=== PATIENT | male | born 1945 | race Caucasian/White ===

== ENCOUNTER 2018-04-03 18:38 | Inpatient (IN) ==
[2018-04-03] MEDS ORDERED: Sod Chloride 0.9% Inj 1,000 ML IV.SIG ONE (19:13)
[2018-04-03 19:45] LABS: Baso # (Auto) 0.1 th/mm3 (0.0-0.2); Baso % (Auto) 1.6 % (0.0-2.0); Eos % (Auto) 0.2 % (0.0-4.0); Hematocrit 46.2 % (39.0-51.0); Hemoglobin 15.6 gm/dL (13.0-17.0); Lymph # (Auto) 0.9 th/mm3 (1.0-4.8); Lymph % (Auto) 10.2 % (9.0-44.0); Mean Corpuscular HGB Conc 33.8 % (32.0-36.0); Mean Corpuscular Hemoglobin 30.4 pg (27.0-34.0); Mean Corpuscular Volume 90.1 fL (80.0-100.0); Mono # (Auto) 0.9 th/mm3 (0.0-0.9); Mono % (Auto) 9.6 % (0.0-8.0); Neut # (Auto) 7.3 th/mm3 (1.8-7.7); Neut % (Auto) 78.4 % (16.0-70.0); Platelet Count 269 th/mm3 (150-450); Red Blood Count 5.13 mil/mm3 (4.50-5.90); Red Cell Distribution Width 14.1 % (11.6-17.2); White Blood Count 9.2 th/mm3 (4.0-11.0)
[2018-04-03 19:49] LABS: Chloride 109 meq/L (98-107); Potassium 4.2 meq/L (3.5-5.1); Sodium 142 meq/L (136-145)
[2018-04-03 19:52] LABS: Calcium 8.6 mg/dL (8.5-10.1)
[2018-04-03 19:53] LABS: Albumin 3.3 g/dL (3.4-5.0); Anion Gap 10 meq/L (5-15); Blood Urea Nitrogen 38 mg/dL (7-18); Carbon Dioxide 23.2 meq/L (21.0-32.0); Glucose,Random 219 mg/dL (74-106)
[2018-04-03 19:56] LABS: Alanine Aminotransferase 20 U/L (12-78); Aspartate Aminotransferase 20 U/L (15-37); Glomerular Filtration Rate 24 mL/min (>89)
[2018-04-03 19:57] LABS: Total Protein 6.9 g/dL (6.4-8.2)
[2018-04-03 19:58] LABS: Lipase 2157 U/L (73-393)
[2018-04-03 19:59] LABS: Alkaline Phosphatase 56 U/L (45-117)
[2018-04-03 20:02] LABS: Creatine Kinase 91 U/L (39-308)
[2018-04-03 20:16] LABS: Platelet Estimate Normal (Normal); Platelet Morphology Normal (Normal); RBC Morphology Normal (Normal)
--- NOTE | 2018-04-03 21:28 | ED ---
HPI General Chief complaint: Respiratory Symptoms Stated complaint: Congested/Sweating/Diarrhea Time Seen by Provider: 04/03/18 19:13 History of Present Illness HPI narrative: 73 male history of hypertension diabetes here for evaluation of diarrhea. Diarrhea started 5 days ago, watery, foul-smelling, associated with abdominal pain in the epigastric region, abdominal pain rated 7/10, constant, nothing makes it better or worse. No alcohol or drugs. Patient was prescribed a Z-Brady for his cough about a week ago, 3 days later he started noticing diarrhea. He has no fever or chills or night sweats, he says he still have a mild cough but no shortness of breath or chest pain. Related Data Home Medications Medication Instructions Recorded Confirmed aspirin [Aspir-81] 81 mg PO DAILY 01/20/18 04/03/18 cholecalciferol (vitamin D3) 2,000 units/day PO DAILY 01/20/18 04/03/18 [Vitamin D3] donepezil 10 mg PO HS 01/20/18 04/03/18 fenofibrate 160 mg PO DAILY 01/20/18 04/03/18 glipizide 10 mg PO BID 01/20/18 04/03/18 isosorbide mononitrate 60 mg PO DAILY 01/20/18 04/03/18 levothyroxine 50 mcg PO DAILY 01/20/18 04/03/18 lisinopril 40 mg PO DAILY 01/20/18 04/03/18 memantine 10 mg PO BID 01/20/18 04/03/18 metoprolol tartrate 25 mg PO BID 01/20/18 04/03/18 mometasone [Nasonex] 2 spray INTRANASAL DAILY 01/20/18 04/03/18 [id number] oil [[place]-3 720 mg PO TID 01/20/18 04/03/18 Fish Oil] prasugrel [Effient] 10 mg PO DAILY 01/20/18 04/03/18 insulin glargine [Lantus Solostar 30 unit SUB-Q BID 04/03/18 04/03/18 U-100 Insulin] Allergies Allergy/AdvReac Type Severity Reaction Status Date / Time iodine Allergy Unknown Doesn't Verified 04/03/18 19:15 remember rxn potassium iodide Allergy Unknown Doesn't Verified 04/03/18 19:15 remember rxn povidone-iodine Allergy Unknown Doesn't Verified 04/03/18 19:15 remember rxn sodium iodide Allergy Unknown Doesn't Verified 04/03/18 19:15 remember rxn sodium iodide Allergy Unknown Doesn't Verified 04/03/18 19:15 remember rxn Review of Systems ROS: all other systems reviewed are negative [facility] Medical History Medical History Kidney calculus (Acute) 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) Acute allergic rhinitis (Acute) High cholesterol (Acute) Diabetes (Acute) Hypertension (Acute) Thyroid disease (Acute) Surgical History Surgical History History of appendectomy (Acute) History of heart artery stent (Acute) History of tonsillectomy (Acute) Hx of cholecystectomy (Acute) Family History Family History Other No pertinent family history Social History Social History Substance History: No History of Abuse Second Hand Smoke Exposure: No Smoking Status: Former smoker Tobacco Type: Cigarettes How Often Do You Have a Drink Containing Alcohol: Never Immunization History Tetanus Immunization: <5 Years Hx Influenza Vaccine This Season: No Exam Narrative Exam Narrative: GENERAL: Alert oriented 3 no acute distress SKIN: Focused skin assessment warm/dry. HEAD: Atraumatic. Normocephalic. EYES: Pupils equal and round. No scleral icterus. No injection or drainage. ENT: No nasal bleeding or discharge. Mucous membranes pink and moist. NECK: Trachea midline. No JVD. CARDIOVASCULAR: Regular rate and rhythm. No murmur appreciated. RESPIRATORY: No accessory muscle use. Clear to auscultation. Breath sounds equal bilaterally. GASTROINTESTINAL: Mild tenderness on palpation of the epigastric region, abdomen soft, nondistended. Hepatic and splenic margins not palpable. MUSCULOSKELETAL: No obvious deformities. No clubbing. No cyanosis. No edema. NEUROLOGICAL: Awake and alert. No obvious cranial nerve deficits. Motor grossly within normal limits. Normal speech. PSYCHIATRIC: Appropriate mood and affect; insight and judgment normal. Course Initial Documented Vital Signs Temperature 97.6 F 04/03/18 18:44 Pulse Rate 76 04/03/18 18:44 Respiratory Rate 16 04/03/18 18:44 Blood Pressure 166/78 H 04/03/18 18:44 Pulse Oximetry 97 04/03/18 18:44 Last Documented Vital Signs Temperature 96.7 F L 04/07/18 08:00 Pulse Rate 60 04/07/18 08:00 Respiratory Rate 18 04/07/18 08:00 Blood Pressure 129/62 04/07/18 08:00 Pulse Oximetry 98 04/07/18 08:00 Medical Decision Making MDM Narrative Medical decision making narrative: 73 male here for diarrhea and abdominal pain , elevated lipase Of 2157, lactic acid 2.3, no hypotension or tachycardia, given the diarrhea and the lactic acidosis there is concern for possible mesenteric ischemia, I am unable to do a CTA of the abdomen to rule that out, patient received IV fluids, may need colonoscopy or further GI evaluation. Pending stool studies, will admit for further evaluation.f 2157, lactic acid 2.3 , no hypotension or tachycardia, given the diarrhea and the lactic acidosis there is concern for possible mesenteric ischemia, I am unable to do a CTA of the abdomen to rule that out, patient received IV fluids, may need colonoscopy or further GI evaluation. Pending stool studies, will admit for further evaluation. Medical Screen Exam Complete: Yes Emergency Medical Condition: Yes Lab Data Result diagrams: 04/05/18 04:35 04/06/18 09:05 Lab Results 04/03/18 04/03/18 04/03/18 Range/Units 19:30 19:30 19:30 CBC w Diff Slide review pending WBC 9.2 (4.0-11.0) th/mm3 RBC 5.13 (4.50-5.90) mil/mm3 Hgb 15.6 (13.0-17.0) gm/dL Hct 46.2 (39.0-51.0) % MCV 90.1 (80.0-100.0) fL MCH 30.4 (27.0-34.0) pg MCHC 33.8 (32.0-36.0) % RDW 14.1 (11.6-17.2) % Plt Count 269 (150-450) th/mm3 MPV 9.0 (7.0-11.0) fL Neut % (Auto) 78.4 H (16.0-70.0) % Lymph % (Auto) 10.2 (9.0-44.0) % [place] % (Auto) 9.6 H (0.0-8.0) % Eos % (Auto) 0.2 (0.0-4.0) % Baso % (Auto) 1.6 (0.0-2.0) % Neut # (Auto) 7.3 (1.8-7.7) th/mm3 Lymph # (Auto) 0.9 L (1.0-4.8) th/mm3 [place] # (Auto) 0.9 (0.0-0.9) th/mm3 Eos # (Auto) 0.0 (0.0-0.4) th/mm3 Baso # (Auto) 0.1 (0.0-0.2) th/mm3 WBC Differential . Diff Scan Auto diff confirmed Differential Comment . Platelet Estimate Normal (Normal) Platelet Morphology Normal (Normal) RBC Morphology Normal (Normal) Sodium 142 (136-145) meq/L Potassium 4.2 (3.5-5.1) meq/L Chloride 109 H (98-107) meq/L Carbon Dioxide 23.2 (21.0-32.0) meq/L Anion Gap 10 (5-15) meq/L BUN 38 H (7-18) mg/dL Creatinine 2.60 H (0.60-1.30) mg/dL Estimated GFR 24 L (>89) mL/min POC Glucose (68-110) mg/dl Random Glucose 219 H (74-106) mg/dL Lactic Acid 2.3 H (0.4-2.0) mmol/L Calcium 8.6 (8.5-10.1) mg/dL Magnesium (1.5-2.5) mg/dL Total Bilirubin 0.4 (0.2-1.0) mg/dL AST 20 (15-37) U/L ALT 20 (12-78) U/L Alkaline Phosphatase 56 (45-117) U/L Total Creatine Kinase 91 (39-308) U/L Troponin I Less than 0.02 L (0.02-0.05) ng/mL Total Protein 6.9 (6.4-8.2) g/dL Albumin 3.3 L (3.4-5.0) g/dL Triglycerides (42-150) mg/dL Cholesterol (120-200) mg/dL LDL Cholesterol, Calc (0-99) mg/dL HDL Cholesterol (40.0-60.0) mg/dL Cholesterol/HDL Ratio Ratio Lipase 2157 H (73-393) U/L Urine Color (Yellw/Straw) Urine Clarity (Clear) Urine pH (5.0-8.5) Ur Specific [place] (1.002-1.035) Urine Protein (Neg-Trace) mg/dL Urine Glucose (UA) (Negative) mg/dL Urine Ketones (Negative) mg/dL Urine Occult Blood (Negative) Urine Nitrate (Negative) Urine Bilirubin (Negative) Urine Urobilinogen (Less than 2) mg/dL Ur Leukocyte Esterase (Negative) Urine RBC (0-3) /hpf Urine WBC (0-5) /hpf Ur Squamous Epith Cells (0-5) /hpf Calcium Oxalate Crystal (None) /hpf Micro UA Comment Ur Microscopic Review Urine Culture Comments Stl C.difficile Tox PCR (Negative) St C. diff Tox Epid 027 (Negative) IgG Total (694-1618) mg/dL IgG1 (382-929) mg/dL IgG2 (241-700) mg/dL IgG3 (22-178) mg/dL IgG4 (4-86) mg/dL 04/03/18 04/03/18 04/04/18 Range/Units 21:20 22:15 00:42 CBC w Diff WBC (4.0-11.0) th/mm3 RBC (4.50-5.90) mil/mm3 Hgb (13.0-17.0) gm/dL Hct (39.0-51.0) % MCV (80.0-100.0) fL MCH (27.0-34.0) pg MCHC (32.0-36.0) % RDW (11.6-17.2) % Plt Count (150-450) th/mm3 MPV (7.0-11.0) fL Neut % (Auto) (16.0-70.0) % Lymph % (Auto) (9.0-44.0) % [place] % (Auto) (0.0-8.0) % Eos % (Auto) (0.0-4.0) % Baso % (Auto) (0.0-2.0) % Neut # (Auto) (1.8-7.7) th/mm3 Lymph # (Auto) (1.0-4.8) th/mm3 [place] # (Auto) (0.0-0.9) th/mm3 Eos # (Auto) (0.0-0.4) th/mm3 Baso # (Auto) (0.0-0.2) th/mm3 WBC Differential Diff Scan Differential Comment Platelet Estimate (Normal) Platelet Morphology (Normal) RBC Morphology (Normal) Sodium (136-145) meq/L Potassium (3.5-5.1) meq/L Chloride (98-107) meq/L Carbon Dioxide (21.0-32.0) meq/L Anion Gap (5-15) meq/L BUN (7-18) mg/dL Creatinine (0.60-1.30) mg/dL Estimated GFR (>89) mL/min POC Glucose 60 L (68-110) mg/dl Random Glucose (74-106) mg/dL Lactic Acid 1.1 (0.4-2.0) mmol/L Calcium (8.5-10.1) mg/dL Magnesium (1.5-2.5) mg/dL Total Bilirubin (0.2-1.0) mg/dL AST (15-37) U/L ALT (12-78) U/L Alkaline Phosphatase (45-117) U/L Total Creatine Kinase (39-308) U/L Troponin I (0.02-0.05) ng/mL Total Protein (6.4-8.2) g/dL Albumin (3.4-5.0) g/dL Triglycerides (42-150) mg/dL Cholesterol (120-200) mg/dL LDL Cholesterol, Calc (0-99) mg/dL HDL Cholesterol (40.0-60.0) mg/dL Cholesterol/HDL Ratio Ratio Lipase (73-393) U/L Urine Color (Yellw/Straw) Urine Clarity (Clear) Urine pH (5.0-8.5) Ur Specific [place] (1.002-1.035) Urine Protein (Neg-Trace) mg/dL Urine Glucose (UA) (Negative) mg/dL Urine Ketones (Negative) mg/dL Urine Occult Blood (Negative) Urine Nitrate (Negative) Urine Bilirubin (Negative) Urine Urobilinogen (Less than 2) mg/dL Ur Leukocyte Esterase (Negative) Urine RBC (0-3) /hpf Urine WBC (0-5) /hpf Ur Squamous Epith Cells (0-5) /hpf Calcium Oxalate Crystal (None) /hpf Micro UA Comment Ur Microscopic Review Urine Culture Comments Stl C.difficile Tox PCR Negative (Negative) St C. diff Tox Epid 027 Negative (Negative) IgG Total (694-1618) mg/dL IgG1 (382-929) mg/dL IgG2 (241-700) mg/dL IgG3 (22-178) mg/dL IgG4 (4-86) mg/dL 04/04/18 04/04/18 04/04/18 Range/Units 01:30 03:40 04:16 CBC w Diff WBC (4.0-11.0) th/mm3 RBC (4.50-5.90) mil/mm3 Hgb (13.0-17.0) gm/dL Hct (39.0-51.0) % MCV (80.0-100.0) fL MCH (27.0-34.0) pg MCHC (32.0-36.0) % RDW (11.6-17.2) % Plt Count (150-450) th/mm3 MPV (7.0-11.0) fL Neut % (Auto) (16.0-70.0) % Lymph % (Auto) (9.0-44.0) % [place] % (Auto) (0.0-8.0) % Eos % (Auto) (0.0-4.0) % Baso % (Auto) (0.0-2.0) % Neut # (Auto) (1.8-7.7) th/mm3 Lymph # (Auto) (1.0-4.8) th/mm3 [place] # (Auto) (0.0-0.9) th/mm3 Eos # (Auto) (0.0-0.4) th/mm3 Baso # (Auto) (0.0-0.2) th/mm3 WBC Differential Diff Scan Differential Comment Platelet Estimate (Normal) Platelet Morphology (Normal) RBC Morphology (Normal) Sodium (136-145) meq/L Potassium (3.5-5.1) meq/L Chloride (98-107) meq/L Carbon Dioxide (21.0-32.0) meq/L Anion Gap (5-15) meq/L BUN (7-18) mg/dL Creatinine (0.60-1.30) mg/dL Estimated GFR (>89) mL/min POC Glucose 76 81 (68-110) mg/dl Random Glucose 81 D (74-106) mg/dL Lactic Acid (0.4-2.0) mmol/L Calcium (8.5-10.1) mg/dL Magnesium (1.5-2.5) mg/dL Total Bilirubin (0.2-1.0) mg/dL AST (15-37) U/L ALT (12-78) U/L Alkaline Phosphatase (45-117) U/L Total Creatine Kinase (39-308) U/L Troponin I (0.02-0.05) ng/mL Total Protein (6.4-8.2) g/dL Albumin (3.4-5.0) g/dL Triglycerides (42-150) mg/dL Cholesterol (120-200) mg/dL LDL Cholesterol, Calc (0-99) mg/dL HDL Cholesterol (40.0-60.0) mg/dL Cholesterol/HDL Ratio Ratio Lipase (73-393) U/L Urine Color (Yellw/Straw) Urine Clarity (Clear) Urine pH (5.0-8.5) Ur Specific [place] (1.002-1.035) Urine Protein (Neg-Trace) mg/dL Urine Glucose (UA) (Negative) mg/dL Urine Ketones (Negative) mg/dL Urine Occult Blood (Negative) Urine Nitrate (Negative) Urine Bilirubin (Negative) Urine Urobilinogen (Less than 2) mg/dL Ur Leukocyte Esterase (Negative) Urine RBC (0-3) /hpf Urine WBC (0-5) /hpf Ur Squamous Epith Cells (0-5) /hpf Calcium Oxalate Crystal (None) /hpf Micro UA Comment Ur Microscopic Review Urine Culture Comments Stl C.difficile Tox PCR (Negative) St C. diff Tox Epid 027 (Negative) IgG Total (694-1618) mg/dL IgG1 (382-929) mg/dL IgG2 (241-700) mg/dL IgG3 (22-178) mg/dL IgG4 (4-86) mg/dL 04/04/18 04/04/18 04/04/18 Range/Units 04:35 05:00 06:20 CBC w Diff Auto diff final WBC 8.9 (4.0-11.0) th/mm3 RBC 4.81 (4.50-5.90) mil/mm3 Hgb 15.1 (13.0-17.0) gm/dL Hct 44.2 (39.0-51.0) % MCV 92.0 (80.0-100.0) fL MCH 31.4 (27.0-34.0) pg MCHC 34.1 (32.0-36.0) % RDW 13.9 (11.6-17.2) % Plt Count 219 (150-450) th/mm3 MPV 8.3 (7.0-11.0) fL Neut % (Auto) 74.8 H (16.0-70.0) % Lymph % (Auto) 17.6 (9.0-44.0) % [place] % (Auto) 5.7 (0.0-8.0) % Eos % (Auto) 0.8 (0.0-4.0) % Baso % (Auto) 1.1 (0.0-2.0) % Neut # (Auto) 6.6 (1.8-7.7) th/mm3 Lymph # (Auto) 1.6 (1.0-4.8) th/mm3 [place] # (Auto) 0.5 (0.0-0.9) th/mm3 Eos # (Auto) 0.1 (0.0-0.4) th/mm3 Baso # (Auto) 0.1 (0.0-0.2) th/mm3 WBC Differential . Diff Scan Differential Comment . Platelet Estimate (Normal) Platelet Morphology (Normal) RBC Morphology (Normal) Sodium (136-145) meq/L Potassium (3.5-5.1) meq/L Chloride (98-107) meq/L Carbon Dioxide (21.0-32.0) meq/L Anion Gap (5-15) meq/L BUN (7-18) mg/dL Creatinine (0.60-1.30) mg/dL Estimated GFR (>89) mL/min POC Glucose 88 86 (68-110) mg/dl Random Glucose (74-106) mg/dL Lactic Acid (0.4-2.0) mmol/L Calcium (8.5-10.1) mg/dL Magnesium (1.5-2.5) mg/dL Total Bilirubin (0.2-1.0) mg/dL AST (15-37) U/L ALT (12-78) U/L Alkaline Phosphatase (45-117) U/L Total Creatine Kinase (39-308) U/L Troponin I (0.02-0.05) ng/mL Total Protein (6.4-8.2) g/dL Albumin (3.4-5.0) g/dL Triglycerides (42-150) mg/dL Cholesterol (120-200) mg/dL LDL Cholesterol, Calc (0-99) mg/dL HDL Cholesterol (40.0-60.0) mg/dL Cholesterol/HDL Ratio Ratio Lipase (73-393) U/L Urine Color (Yellw/Straw) Urine Clarity (Clear) Urine pH (5.0-8.5) Ur Specific [place] (1.002-1.035) Urine Protein (Neg-Trace) mg/dL Urine Glucose (UA) (Negative) mg/dL Urine Ketones (Negative) mg/dL Urine Occult Blood (Negative) Urine Nitrate (Negative) Urine Bilirubin (Negative) Urine Urobilinogen (Less than 2) mg/dL Ur Leukocyte Esterase (Negative) Urine RBC (0-3) /hpf Urine WBC (0-5) /hpf Ur Squamous Epith Cells (0-5) /hpf Calcium Oxalate Crystal (None) /hpf Micro UA Comment Ur Microscopic Review Urine Culture Comments Stl C.difficile Tox PCR (Negative) St C. diff Tox Epid 027 (Negative) IgG Total (694-1618) mg/dL IgG1 (382-929) mg/dL IgG2 (241-700) mg/dL IgG3 (22-178) mg/dL IgG4 (4-86) mg/dL 04/04/18 04/04/18 04/04/18 Range/Units 06:20 06:20 06:37 CBC w Diff WBC (4.0-11.0) th/mm3 RBC (4.50-5.90) mil/mm3 Hgb (13.0-17.0) gm/dL Hct (39.0-51.0) % MCV (80.0-100.0) fL MCH (27.0-34.0) pg MCHC (32.0-36.0) % RDW (11.6-17.2) % Plt Count (150-450) th/mm3 MPV (7.0-11.0) fL Neut % (Auto) (16.0-70.0) % Lymph % (Auto) (9.0-44.0) % [place] % (Auto) (0.0-8.0) % Eos % (Auto) (0.0-4.0) % Baso % (Auto) (0.0-2.0) % Neut # (Auto) (1.8-7.7) th/mm3 Lymph # (Auto) (1.0-4.8) th/mm3 [place] # (Auto) (0.0-0.9) th/mm3 Eos # (Auto) (0.0-0.4) th/mm3 Baso # (Auto) (0.0-0.2) th/mm3 WBC Differential Diff Scan Differential Comment Platelet Estimate (Normal) Platelet Morphology (Normal) RBC Morphology (Normal) Sodium 143 (136-145) meq/L Potassium 3.8 (3.5-5.1) meq/L Chloride 114 H (98-107) meq/L Carbon Dioxide 19.7 L (21.0-32.0) meq/L Anion Gap 9 (5-15) meq/L BUN 33 H (7-18) mg/dL Creatinine 2.20 H (0.60-1.30) mg/dL Estimated GFR 29 L (>89) mL/min POC Glucose 81 (68-110) mg/dl Random Glucose 75 (74-106) mg/dL Lactic Acid (0.4-2.0) mmol/L Calcium 8.4 L (8.5-10.1) mg/dL Magnesium 1.9 (1.5-2.5) mg/dL Total Bilirubin 0.7 (0.2-1.0) mg/dL AST 20 (15-37) U/L ALT 20 (12-78) U/L Alkaline Phosphatase 54 (45-117) U/L Total Creatine Kinase (39-308) U/L Troponin I (0.02-0.05) ng/mL Total Protein 7.1 (6.4-8.2) g/dL Albumin 3.5 (3.4-5.0) g/dL Triglycerides (42-150) mg/dL Cholesterol (120-200) mg/dL LDL Cholesterol, Calc (0-99) mg/dL HDL Cholesterol (40.0-60.0) mg/dL Cholesterol/HDL Ratio Ratio Lipase 2983 H (73-393) U/L Urine Color (Yellw/Straw) Urine Clarity (Clear) Urine pH (5.0-8.5) Ur Specific [place] (1.002-1.035) Urine Protein (Neg-Trace) mg/dL Urine Glucose (UA) (Negative) mg/dL Urine Ketones (Negative) mg/dL Urine Occult Blood (Negative) Urine Nitrate (Negative) Urine Bilirubin (Negative) Urine Urobilinogen (Less than 2) mg/dL Ur Leukocyte Esterase (Negative) Urine RBC (0-3) /hpf Urine WBC (0-5) /hpf Ur Squamous Epith Cells (0-5) /hpf Calcium Oxalate Crystal (None) /hpf Micro UA Comment Ur Microscopic Review Urine Culture Comments Stl C.difficile Tox PCR (Negative) St C. diff Tox Epid 027 (Negative) IgG Total (694-1618) mg/dL IgG1 (382-929) mg/dL IgG2 (241-700) mg/dL IgG3 (22-178) mg/dL IgG4 (4-86) mg/dL 04/04/18 04/04/18 04/04/18 Range/Units 08:07 11:26 11:45 CBC w Diff WBC (4.0-11.0) th/mm3 RBC (4.50-5.90) mil/mm3 Hgb (13.0-17.0) gm/dL Hct (39.0-51.0) % MCV (80.0-100.0) fL MCH (27.0-34.0) pg MCHC (32.0-36.0) % RDW (11.6-17.2) % Plt Count (150-450) th/mm3 MPV (7.0-11.0) fL Neut % (Auto) (16.0-70.0) % Lymph % (Auto) (9.0-44.0) % [place] % (Auto) (0.0-8.0) % Eos % (Auto) (0.0-4.0) % Baso % (Auto) (0.0-2.0) % Neut # (Auto) (1.8-7.7) th/mm3 Lymph # (Auto) (1.0-4.8) th/mm3 [place] # (Auto) (0.0-0.9) th/mm3 Eos # (Auto) (0.0-0.4) th/mm3 Baso # (Auto) (0.0-0.2) th/mm3 WBC Differential Diff Scan Differential Comment Platelet Estimate (Normal) Platelet Morphology (Normal) RBC Morphology (Normal) Sodium (136-145) meq/L Potassium (3.5-5.1) meq/L Chloride (98-107) meq/L Carbon Dioxide (21.0-32.0) meq/L Anion Gap (5-15) meq/L BUN (7-18) mg/dL Creatinine (0.60-1.30) mg/dL Estimated GFR (>89) mL/min POC Glucose 86 94 (68-110) mg/dl Random Glucose (74-106) mg/dL Lactic Acid (0.4-2.0) mmol/L Calcium (8.5-10.1) mg/dL Magnesium (1.5-2.5) mg/dL Total Bilirubin (0.2-1.0) mg/dL AST (15-37) U/L ALT (12-78) U/L Alkaline Phosphatase (45-117) U/L Total Creatine Kinase (39-308) U/L Troponin I (0.02-0.05) ng/mL Total Protein (6.4-8.2) g/dL Albumin (3.4-5.0) g/dL Triglycerides (42-150) mg/dL Cholesterol (120-200) mg/dL LDL Cholesterol, Calc (0-99) mg/dL HDL Cholesterol (40.0-60.0) mg/dL Cholesterol/HDL Ratio Ratio Lipase (73-393) U/L Urine Color Yellow (Yellw/Straw) Urine Clarity Clear (Clear) Urine pH 5.5 (5.0-8.5) Ur Specific [place] Greater/equal 1.030 (1.002-1.035) Urine Protein 100 H (Neg-Trace) mg/dL Urine Glucose (UA) Negative (Negative) mg/dL Urine Ketones Negative (Negative) mg/dL Urine Occult Blood Small H (Negative) Urine Nitrate Negative (Negative) Urine Bilirubin Negative (Negative) Urine Urobilinogen 0.2 (Less than 2) mg/dL Ur Leukocyte Esterase Negative (Negative) Urine RBC 4-15 H (0-3) /hpf Urine WBC 0-5 (0-5) /hpf Ur Squamous Epith Cells 0-5 (0-5) /hpf Calcium Oxalate Crystal Occasional H (None) /hpf Micro UA Comment Culture not ind Ur Microscopic Review Microscopic reviewed Urine Culture Comments Culture not ind Stl C.difficile Tox PCR (Negative) St C. diff Tox Epid 027 (Negative) IgG Total (694-1618) mg/dL IgG1 (382-929) mg/dL IgG2 (241-700) mg/dL IgG3 (22-178) mg/dL IgG4 (4-86) mg/dL 04/04/18 04/04/18 04/05/18 Range/Units 17:06 19:59 04:35 CBC w Diff Auto diff final WBC 6.8 (4.0-11.0) th/mm3 RBC 4.67 (4.50-5.90) mil/mm3 Hgb 14.7 (13.0-17.0) gm/dL Hct 43.4 (39.0-51.0) % MCV 92.9 (80.0-100.0) fL MCH 31.5 (27.0-34.0) pg MCHC 34.0 (32.0-36.0) % RDW 13.9 (11.6-17.2) % Plt Count 209 (150-450) th/mm3 MPV 8.3 (7.0-11.0) fL Neut % (Auto) 66.2 (16.0-70.0) % Lymph % (Auto) 20.9 (9.0-44.0) % [place] % (Auto) 10.0 H (0.0-8.0) % Eos % (Auto) 1.5 (0.0-4.0) % Baso % (Auto) 1.4 (0.0-2.0) % Neut # (Auto) 4.5 (1.8-7.7) th/mm3 Lymph # (Auto) 1.4 (1.0-4.8) th/mm3 [place] # (Auto) 0.7 (0.0-0.9) th/mm3 Eos # (Auto) 0.1 (0.0-0.4) th/mm3 Baso # (Auto) 0.1 (0.0-0.2) th/mm3 WBC Differential . Diff Scan Differential Comment . Platelet Estimate (Normal) Platelet Morphology (Normal) RBC Morphology (Normal) Sodium (136-145) meq/L Potassium (3.5-5.1) meq/L Chloride (98-107) meq/L Carbon Dioxide (21.0-32.0) meq/L Anion Gap (5-15) meq/L BUN (7-18) mg/dL Creatinine (0.60-1.30) mg/dL Estimated GFR (>89) mL/min POC Glucose 134 H 254 H (68-110) mg/dl Random Glucose (74-106) mg/dL Lactic Acid (0.4-2.0) mmol/L Calcium (8.5-10.1) mg/dL Magnesium (1.5-2.5) mg/dL Total Bilirubin (0.2-1.0) mg/dL AST (15-37) U/L ALT (12-78) U/L Alkaline Phosphatase (45-117) U/L Total Creatine Kinase (39-308) U/L Troponin I (0.02-0.05) ng/mL Total Protein (6.4-8.2) g/dL Albumin (3.4-5.0) g/dL Triglycerides (42-150) mg/dL Cholesterol (120-200) mg/dL LDL Cholesterol, Calc (0-99) mg/dL HDL Cholesterol (40.0-60.0) mg/dL Cholesterol/HDL Ratio Ratio Lipase (73-393) U/L Urine Color (Yellw/Straw) Urine Clarity (Clear) Urine pH (5.0-8.5) Ur Specific [place] (1.002-1.035) Urine Protein (Neg-Trace) mg/dL Urine Glucose (UA) (Negative) mg/dL Urine Ketones (Negative) mg/dL Urine Occult Blood (Negative) Urine Nitrate (Negative) Urine Bilirubin (Negative) Urine Urobilinogen (Less than 2) mg/dL Ur Leukocyte Esterase (Negative) Urine RBC (0-3) /hpf Urine WBC (0-5) /hpf Ur Squamous Epith Cells (0-5) /hpf Calcium Oxalate Crystal (None) /hpf Micro UA Comment Ur Microscopic Review Urine Culture Comments Stl C.difficile Tox PCR (Negative) St C. diff Tox Epid 027 (Negative) IgG Total (694-1618) mg/dL IgG1 (382-929) mg/dL IgG2 (241-700) mg/dL IgG3 (22-178) mg/dL IgG4 (4-86) mg/dL 04/05/18 04/05/18 04/05/18 Range/Units 04:35 07:27 11:43 CBC w Diff WBC (4.0-11.0) th/mm3 RBC (4.50-5.90) mil/mm3 Hgb (13.0-17.0) gm/dL Hct (39.0-51.0) % MCV (80.0-100.0) fL MCH (27.0-34.0) pg MCHC (32.0-36.0) % RDW (11.6-17.2) % Plt Count (150-450) th/mm3 MPV (7.0-11.0) fL Neut % (Auto) (16.0-70.0) % Lymph % (Auto) (9.0-44.0) % [place] % (Auto) (0.0-8.0) % Eos % (Auto) (0.0-4.0) % Baso % (Auto) (0.0-2.0) % Neut # (Auto) (1.8-7.7) th/mm3 Lymph # (Auto) (1.0-4.8) th/mm3 [place] # (Auto) (0.0-0.9) th/mm3 Eos # (Auto) (0.0-0.4) th/mm3 Baso # (Auto) (0.0-0.2) th/mm3 WBC Differential Diff Scan Differential Comment Platelet Estimate (Normal) Platelet Morphology (Normal) RBC Morphology (Normal) Sodium 143 (136-145) meq/L Potassium 4.0 (3.5-5.1) meq/L Chloride 114 H (98-107) meq/L Carbon Dioxide 21.0 (21.0-32.0) meq/L Anion Gap 8 (5-15) meq/L BUN 23 H (7-18) mg/dL Creatinine 1.90 H (0.60-1.30) mg/dL Estimated GFR 35 L (>89) mL/min POC Glucose 151 H 177 H (68-110) mg/dl Random Glucose 131 H (74-106) mg/dL Lactic Acid (0.4-2.0) mmol/L Calcium 8.2 L (8.5-10.1) mg/dL Magnesium 1.9 (1.5-2.5) mg/dL Total Bilirubin (0.2-1.0) mg/dL AST (15-37) U/L ALT (12-78) U/L Alkaline Phosphatase (45-117) U/L Total Creatine Kinase (39-308) U/L Troponin I (0.02-0.05) ng/mL Total Protein (6.4-8.2) g/dL Albumin (3.4-5.0) g/dL Triglycerides (42-150) mg/dL Cholesterol (120-200) mg/dL LDL Cholesterol, Calc (0-99) mg/dL HDL Cholesterol (40.0-60.0) mg/dL Cholesterol/HDL Ratio Ratio Lipase 2266 H (73-393) U/L Urine Color (Yellw/Straw) Urine Clarity (Clear) Urine pH (5.0-8.5) Ur Specific [place] (1.002-1.035) Urine Protein (Neg-Trace) mg/dL Urine Glucose (UA) (Negative) mg/dL Urine Ketones (Negative) mg/dL Urine Occult Blood (Negative) Urine Nitrate (Negative) Urine Bilirubin (Negative) Urine Urobilinogen (Less than 2) mg/dL Ur Leukocyte Esterase (Negative) Urine RBC (0-3) /hpf Urine WBC (0-5) /hpf Ur Squamous Epith Cells (0-5) /hpf Calcium Oxalate Crystal (None) /hpf Micro UA Comment Ur Microscopic Review Urine Culture Comments Stl C.difficile Tox PCR (Negative) St C. diff Tox Epid 027 (Negative) IgG Total (694-1618) mg/dL IgG1 (382-929) mg/dL IgG2 (241-700) mg/dL IgG3 (22-178) mg/dL IgG4 (4-86) mg/dL 04/05/18 04/05/18 04/06/18 Range/Units 16:44 20:43 07:30 CBC w Diff WBC (4.0-11.0) th/mm3 RBC (4.50-5.90) mil/mm3 Hgb (13.0-17.0) gm/dL Hct (39.0-51.0) % MCV (80.0-100.0) fL MCH (27.0-34.0) pg MCHC (32.0-36.0) % RDW (11.6-17.2) % Plt Count (150-450) th/mm3 MPV (7.0-11.0) fL Neut % (Auto) (16.0-70.0) % Lymph % (Auto) (9.0-44.0) % [place] % (Auto) (0.0-8.0) % Eos % (Auto) (0.0-4.0) % Baso % (Auto) (0.0-2.0) % Neut # (Auto) (1.8-7.7) th/mm3 Lymph # (Auto) (1.0-4.8) th/mm3 [place] # (Auto) (0.0-0.9) th/mm3 Eos # (Auto) (0.0-0.4) th/mm3 Baso # (Auto) (0.0-0.2) th/mm3 WBC Differential Diff Scan Differential Comment Platelet Estimate (Normal) Platelet Morphology (Normal) RBC Morphology (Normal) Sodium (136-145) meq/L Potassium (3.5-5.1) meq/L Chloride (98-107) meq/L Carbon Dioxide (21.0-32.0) meq/L Anion Gap (5-15) meq/L BUN (7-18) mg/dL Creatinine (0.60-1.30) mg/dL Estimated GFR (>89) mL/min POC Glucose 168 H 253 H 137 H (68-110) mg/dl Random Glucose (74-106) mg/dL Lactic Acid (0.4-2.0) mmol/L Calcium (8.5-10.1) mg/dL Magnesium (1.5-2.5) mg/dL Total Bilirubin (0.2-1.0) mg/dL AST (15-37) U/L ALT (12-78) U/L Alkaline Phosphatase (45-117) U/L Total Creatine Kinase (39-308) U/L Troponin I (0.02-0.05) ng/mL Total Protein (6.4-8.2) g/dL Albumin (3.4-5.0) g/dL Triglycerides (42-150) mg/dL Cholesterol (120-200) mg/dL LDL Cholesterol, Calc (0-99) mg/dL HDL Cholesterol (40.0-60.0) mg/dL Cholesterol/HDL Ratio Ratio Lipase (73-393) U/L Urine Color (Yellw/Straw) Urine Clarity (Clear) Urine pH (5.0-8.5) Ur Specific [place] (1.002-1.035) Urine Protein (Neg-Trace) mg/dL Urine Glucose (UA) (Negative) mg/dL Urine Ketones (Negative) mg/dL Urine Occult Blood (Negative) Urine Nitrate (Negative) Urine Bilirubin (Negative) Urine Urobilinogen (Less than 2) mg/dL Ur Leukocyte Esterase (Negative) Urine RBC (0-3) /hpf Urine WBC (0-5) /hpf Ur Squamous Epith Cells (0-5) /hpf Calcium Oxalate Crystal (None) /hpf Micro UA Comment Ur Microscopic Review Urine Culture Comments Stl C.difficile Tox PCR (Negative) St C. diff Tox Epid 027 (Negative) IgG Total (694-1618) mg/dL IgG1 (382-929) mg/dL IgG2 (241-700) mg/dL IgG3 (22-178) mg/dL IgG4 (4-86) mg/dL 04/06/18 04/06/18 04/06/18 Range/Units 09:05 12:04 16:28 CBC w Diff WBC (4.0-11.0) th/mm3 RBC (4.50-5.90) mil/mm3 Hgb (13.0-17.0) gm/dL Hct (39.0-51.0) % MCV (80.0-100.0) fL MCH (27.0-34.0) pg MCHC (32.0-36.0) % RDW (11.6-17.2) % Plt Count (150-450) th/mm3 MPV (7.0-11.0) fL Neut % (Auto) (16.0-70.0) % Lymph % (Auto) (9.0-44.0) % [place] % (Auto) (0.0-8.0) % Eos % (Auto) (0.0-4.0) % Baso % (Auto) (0.0-2.0) % Neut # (Auto) (1.8-7.7) th/mm3 Lymph # (Auto) (1.0-4.8) th/mm3 [place] # (Auto) (0.0-0.9) th/mm3 Eos # (Auto) (0.0-0.4) th/mm3 Baso # (Auto) (0.0-0.2) th/mm3 WBC Differential Diff Scan Differential Comment Platelet Estimate (Normal) Platelet Morphology (Normal) RBC Morphology (Normal) Sodium 143 (136-145) meq/L Potassium 3.8 (3.5-5.1) meq/L Chloride 114 H (98-107) meq/L Carbon Dioxide 19.7 L (21.0-32.0) meq/L Anion Gap 9 (5-15) meq/L BUN 17 (7-18) mg/dL Creatinine 1.90 H (0.60-1.30) mg/dL Estimated GFR 35 L (>89) mL/min POC Glucose 192 H 149 H (68-110) mg/dl Random Glucose 150 H (74-106) mg/dL Lactic Acid (0.4-2.0) mmol/L Calcium 7.9 L (8.5-10.1) mg/dL Magnesium (1.5-2.5) mg/dL Total Bilirubin (0.2-1.0) mg/dL AST (15-37) U/L ALT (12-78) U/L Alkaline Phosphatase (45-117) U/L Total Creatine Kinase (39-308) U/L Troponin I (0.02-0.05) ng/mL Total Protein (6.4-8.2) g/dL Albumin (3.4-5.0) g/dL Triglycerides (42-150) mg/dL Cholesterol (120-200) mg/dL LDL Cholesterol, Calc (0-99) mg/dL HDL Cholesterol (40.0-60.0) mg/dL Cholesterol/HDL Ratio Ratio Lipase 801 H (73-393) U/L Urine Color (Yellw/Straw) Urine Clarity (Clear) Urine pH (5.0-8.5) Ur Specific [place] (1.002-1.035) Urine Protein (Neg-Trace) mg/dL Urine Glucose (UA) (Negative) mg/dL Urine Ketones (Negative) mg/dL Urine Occult Blood (Negative) Urine Nitrate (Negative) Urine Bilirubin (Negative) Urine Urobilinogen (Less than 2) mg/dL Ur Leukocyte Esterase (Negative) Urine RBC (0-3) /hpf Urine WBC (0-5) /hpf Ur Squamous Epith Cells (0-5) /hpf Calcium Oxalate Crystal (None) /hpf Micro UA Comment Ur Microscopic Review Urine Culture Comments Stl C.difficile Tox PCR (Negative) St C. diff Tox Epid 027 (Negative) IgG Total (694-1618) mg/dL IgG1 (382-929) mg/dL IgG2 (241-700) mg/dL IgG3 (22-178) mg/dL IgG4 (4-86) mg/dL 04/06/18 04/06/18 04/06/18 Range/Units 18:13 18:13 20:38 CBC w Diff WBC (4.0-11.0) th/mm3 RBC (4.50-5.90) mil/mm3 Hgb (13.0-17.0) gm/dL Hct (39.0-51.0) % MCV (80.0-100.0) fL MCH (27.0-34.0) pg MCHC (32.0-36.0) % RDW (11.6-17.2) % Plt Count (150-450) th/mm3 MPV (7.0-11.0) fL Neut % (Auto) (16.0-70.0) % Lymph % (Auto) (9.0-44.0) % [place] % (Auto) (0.0-8.0) % Eos % (Auto) (0.0-4.0) % Baso % (Auto) (0.0-2.0) % Neut # (Auto) (1.8-7.7) th/mm3 Lymph # (Auto) (1.0-4.8) th/mm3 [place] # (Auto) (0.0-0.9) th/mm3 Eos # (Auto) (0.0-0.4) th/mm3 Baso # (Auto) (0.0-0.2) th/mm3 WBC Differential Diff Scan Differential Comment Platelet Estimate (Normal) Platelet Morphology (Normal) RBC Morphology (Normal) Sodium (136-145) meq/L Potassium (3.5-5.1) meq/L Chloride (98-107) meq/L Carbon Dioxide (21.0-32.0) meq/L Anion Gap (5-15) meq/L BUN (7-18) mg/dL Creatinine (0.60-1.30) mg/dL Estimated GFR (>89) mL/min POC Glucose 226 H (68-110) mg/dl Random Glucose (74-106) mg/dL Lactic Acid (0.4-2.0) mmol/L Calcium (8.5-10.1) mg/dL Magnesium (1.5-2.5) mg/dL Total Bilirubin (0.2-1.0) mg/dL AST (15-37) U/L ALT (12-78) U/L Alkaline Phosphatase (45-117) U/L Total Creatine Kinase (39-308) U/L Troponin I (0.02-0.05) ng/mL Total Protein (6.4-8.2) g/dL Albumin (3.4-5.0) g/dL Triglycerides 294 H (42-150) mg/dL Cholesterol 158 (120-200) mg/dL LDL Cholesterol, Calc 67 (0-99) mg/dL HDL Cholesterol 32.6 L (40.0-60.0) mg/dL Cholesterol/HDL Ratio 4.84 Ratio Lipase (73-393) U/L Urine Color (Yellw/Straw) Urine Clarity (Clear) Urine pH (5.0-8.5) Ur Specific [place] (1.002-1.035) Urine Protein (Neg-Trace) mg/dL Urine Glucose (UA) (Negative) mg/dL Urine Ketones (Negative) mg/dL Urine Occult Blood (Negative) Urine Nitrate (Negative) Urine Bilirubin (Negative) Urine Urobilinogen (Less than 2) mg/dL Ur Leukocyte Esterase (Negative) Urine RBC (0-3) /hpf Urine WBC (0-5) /hpf Ur Squamous Epith Cells (0-5) /hpf Calcium Oxalate Crystal (None) /hpf Micro UA Comment Ur Microscopic Review Urine Culture Comments Stl C.difficile Tox PCR (Negative) St C. diff Tox Epid 027 (Negative) IgG Total 696 (694-1618) mg/dL IgG1 299 L (382-929) mg/dL IgG2 279 (241-700) mg/dL IgG3 57 (22-178) mg/dL IgG4 33.0 (4-86) mg/dL 04/07/18 Range/Units 07:25 CBC w Diff WBC (4.0-11.0) th/mm3 RBC (4.50-5.90) mil/mm3 Hgb (13.0-17.0) gm/dL Hct (39.0-51.0) % MCV (80.0-100.0) fL MCH (27.0-34.0) pg MCHC (32.0-36.0) % RDW (11.6-17.2) % Plt Count (150-450) th/mm3 MPV (7.0-11.0) fL Neut % (Auto) (16.0-70.0) % Lymph % (Auto) (9.0-44.0) % [place] % (Auto) (0.0-8.0) % Eos % (Auto) (0.0-4.0) % Baso % (Auto) (0.0-2.0) % Neut # (Auto) (1.8-7.7) th/mm3 Lymph # (Auto) (1.0-4.8) th/mm3 [place] # (Auto) (0.0-0.9) th/mm3 Eos # (Auto) (0.0-0.4) th/mm3 Baso # (Auto) (0.0-0.2) th/mm3 WBC Differential Diff Scan Differential Comment Platelet Estimate (Normal) Platelet Morphology (Normal) RBC Morphology (Normal) Sodium (136-145) meq/L Potassium (3.5-5.1) meq/L Chloride (98-107) meq/L Carbon Dioxide (21.0-32.0) meq/L Anion Gap (5-15) meq/L BUN (7-18) mg/dL Creatinine (0.60-1.30) mg/dL Estimated GFR (>89) mL/min POC Glucose 148 H (68-110) mg/dl Random Glucose (74-106) mg/dL Lactic Acid (0.4-2.0) mmol/L Calcium (8.5-10.1) mg/dL Magnesium (1.5-2.5) mg/dL Total Bilirubin (0.2-1.0) mg/dL AST (15-37) U/L ALT (12-78) U/L Alkaline Phosphatase (45-117) U/L Total Creatine Kinase (39-308) U/L Troponin I (0.02-0.05) ng/mL Total Protein (6.4-8.2) g/dL Albumin (3.4-5.0) g/dL Triglycerides (42-150) mg/dL Cholesterol (120-200) mg/dL LDL Cholesterol, Calc (0-99) mg/dL HDL Cholesterol (40.0-60.0) mg/dL Cholesterol/HDL Ratio Ratio Lipase (73-393) U/L Urine Color (Yellw/Straw) Urine Clarity (Clear) Urine pH (5.0-8.5) Ur Specific [place] (1.002-1.035) Urine Protein (Neg-Trace) mg/dL Urine Glucose (UA) (Negative) mg/dL Urine Ketones (Negative) mg/dL Urine Occult Blood (Negative) Urine Nitrate (Negative) Urine Bilirubin (Negative) Urine Urobilinogen (Less than 2) mg/dL Ur Leukocyte Esterase (Negative) Urine RBC (0-3) /hpf Urine WBC (0-5) /hpf Ur Squamous Epith Cells (0-5) /hpf Calcium Oxalate Crystal (None) /hpf Micro UA Comment Ur Microscopic Review Urine Culture Comments Stl C.difficile Tox PCR (Negative) St C. diff Tox Epid 027 (Negative) IgG Total (694-1618) mg/dL IgG1 (382-929) mg/dL IgG2 (241-700) mg/dL IgG3 (22-178) mg/dL IgG4 (4-86) mg/dL Imaging Data Radiologist's impression: Chest X-Ray 04/03/18 19:13 CONCLUSION: Markedly cardiomegaly with increase in pulmonary vascularity. Lungs are clear. Abdomen/Pelvis CT 04/03/18 20:09 CONCLUSION: 1. Scattered diverticulosis without diverticulitis. 2. Nonobstructing bilateral renal calculi. 3. Status post cholecystectomy. 4. Left renal cysts. 5. Prominence of the left seminal vesicle. Abdomen Ultrasound 04/04/18 00:00 CONCLUSION: 1. Multiple nonobstructing bilateral renal calculi. 2. Multiple bilateral renal cysts. 3. Enlarged fatty liver. 4. Minimally prominent common bile duct which may be related to reservoir phenomenon status post cholecystectomy. Correlation with alkaline phosphatase and bilirubin levels is suggested. Cholangiopancreatography MRI 04/05/18 00:00 CONCLUSION: 1. Previous cholecystectomy. Common bile duct mildly prominent about 9 mm which can be seen status post cholecystectomy. No evidence for choledocholithiasis or pancreatic ductal dilatation. 2. Numerous small bilateral renal cysts. 3. No MR findings of acute pancreatitis. Discharge Plan Discharge Disposition Patient Disposition: 01 Discharge Home Discharge Condition Condition: Stable Discharge Order Discharge Orders: Discharge Order (Routine); Ordered 04/07/18 Ordered By: Halle Palm Discharge Details Anticipated Discharge Date: 04/06/18 Physicians Team ED Provider: Jordy Barrera Primary Care Provider: Zaire Garza V Attending Provider: Erick Nava Other Providers: Patricio Grove Status ED Status: Left Department Discharge Information Discharge Date/Time: 04/03/18 23:12
[2018-04-03] MEDS ORDERED: Bisacodyl 10 MG Supp RECTAL PRN (21:53)
[2018-04-03] MEDS ORDERED: Sod Chloride 0.9% Inj 1,000 ML IV.CONT SCH (22:00)
[2018-04-04] MEDS ORDERED: Dextrose 50% in Water 50 ML Vial IV.PUSH PRN (01:18)
[2018-04-04] MEDS: Dextrose 5%/NaCl 0.9% Inj 1,000 ML IV.CONT SCH ×4 (02:25→21:11)
[2018-04-04] MEDS ORDERED: Acetaminophen 325 MG Tablet PO PRN (06:01)
[2018-04-04 06:53] LABS: Baso # (Auto) 0.1 th/mm3 (0.0-0.2); Baso % (Auto) 1.1 % (0.0-2.0); Eos # (Auto) 0.1 th/mm3 (0.0-0.4); Eos % (Auto) 0.8 % (0.0-4.0); Hematocrit 44.2 % (39.0-51.0); Hemoglobin 15.1 gm/dL (13.0-17.0); Lymph # (Auto) 1.6 th/mm3 (1.0-4.8); Lymph % (Auto) 17.6 % (9.0-44.0); Mean Corpuscular HGB Conc 34.1 % (32.0-36.0); Mean Corpuscular Hemoglobin 31.4 pg (27.0-34.0); Mean Platelet Volume 8.3 fL (7.0-11.0); Mono # (Auto) 0.5 th/mm3 (0.0-0.9); Mono % (Auto) 5.7 % (0.0-8.0); Neut # (Auto) 6.6 th/mm3 (1.8-7.7); Neut % (Auto) 74.8 % (16.0-70.0); Platelet Count 219 th/mm3 (150-450); Red Blood Count 4.81 mil/mm3 (4.50-5.90); Red Cell Distribution Width 13.9 % (11.6-17.2); White Blood Count 8.9 th/mm3 (4.0-11.0)
[2018-04-04 07:20] LABS: Chloride 114 meq/L (98-107); Potassium 3.8 meq/L (3.5-5.1); Sodium 143 meq/L (136-145)
[2018-04-04 07:24] LABS: Albumin 3.5 g/dL (3.4-5.0); Anion Gap 9 meq/L (5-15); Calcium 8.4 mg/dL (8.5-10.1); Carbon Dioxide 19.7 meq/L (21.0-32.0); Glucose,Random 75 mg/dL (74-106)
[2018-04-04 07:25] LABS: Blood Urea Nitrogen 33 mg/dL (7-18)
[2018-04-04 07:27] LABS: Alanine Aminotransferase 20 U/L (12-78); Aspartate Aminotransferase 20 U/L (15-37); Glomerular Filtration Rate 29 mL/min (>89)
[2018-04-04 07:29] LABS: Total Protein 7.1 g/dL (6.4-8.2)
[2018-04-04 07:30] LABS: Alkaline Phosphatase 54 U/L (45-117)
[2018-04-04 07:31] LABS: Lipase 2983 U/L (73-393)
[2018-04-04] MEDS: Insulin NovoLOG Aspart Correctional Sugar Inj SQ SCH ×4 (09:34→20:03)
[2018-04-04] MEDS: Levothyroxine 50 MCG Tablet PO SCH (09:37)
[2018-04-04 11:59] LABS: Bilirubin,Urine Negative (Negative); Clarity,Urine Clear (Clear); Color,Urine Yellow (Yellw/Straw); Glucose,Urine (UA) Negative (Negative); Leukocyte Esterase,Urine Negative (Negative); Nitrite,Urine Negative (Negative); PH,Urine 5.5 (5.0-8.5); Specific Gravity,Urine Greater/Equal 1.030 (1.002-1.035); Urobilinogen,Urine 0.2 mg/dL (Less than 2)
[2018-04-04 12:05] LABS: Calcium Oxalate Crystals,Urine Occasional /hpf; Squamous Epithelial Cell,Urine 0-5 /hpf (0-5); WBC,Urine 0-5 /hpf (0-5)
[2018-04-04] MEDS: Metoprolol Tartrate 25 MG Tablet PO SCH ×3 (12:15→21:09)
[2018-04-04] MEDS: Isosorbide Mononitrate 60 MG ER 24HR Tablet (Imdur) PO SCH (12:15)
[2018-04-04] MEDS ORDERED: OMEGA DHA EPA FISH OIL PO SCH (18:00)
[2018-04-05] MEDS: Levothyroxine 50 MCG Tablet PO SCH (05:16)
[2018-04-05] MEDS: Dextrose 5%/NaCl 0.9% Inj 1,000 ML IV.CONT SCH ×3 (05:16→17:48)
[2018-04-05 06:17] LABS: Baso # (Auto) 0.1 th/mm3 (0.0-0.2); Baso % (Auto) 1.4 % (0.0-2.0); Eos # (Auto) 0.1 th/mm3 (0.0-0.4); Eos % (Auto) 1.5 % (0.0-4.0); Hematocrit 43.4 % (39.0-51.0); Hemoglobin 14.7 gm/dL (13.0-17.0); Lymph # (Auto) 1.4 th/mm3 (1.0-4.8); Lymph % (Auto) 20.9 % (9.0-44.0); Mean Corpuscular Hemoglobin 31.5 pg (27.0-34.0); Mean Corpuscular Volume 92.9 fL (80.0-100.0); Mean Platelet Volume 8.3 fL (7.0-11.0); Mono # (Auto) 0.7 th/mm3 (0.0-0.9); Neut # (Auto) 4.5 th/mm3 (1.8-7.7); Neut % (Auto) 66.2 % (16.0-70.0); Platelet Count 209 th/mm3 (150-450); Red Blood Count 4.67 mil/mm3 (4.50-5.90); Red Cell Distribution Width 13.9 % (11.6-17.2); White Blood Count 6.8 th/mm3 (4.0-11.0)
[2018-04-05 06:25] LABS: Calcium 8.2 mg/dL (8.5-10.1)
[2018-04-05 06:26] LABS: Magnesium 1.9 mg/dL (1.5-2.5)
[2018-04-05] MEDS: Insulin NovoLOG Aspart Correctional Sugar Inj SQ SCH ×4 (08:26→20:46)
[2018-04-05] MEDS: Isosorbide Mononitrate 60 MG ER 24HR Tablet (Imdur) PO SCH (08:27)
[2018-04-05] MEDS: Metoprolol Tartrate 25 MG Tablet PO SCH ×3 (08:27→22:01)
[2018-04-05] MEDS: Fenofibrate 145 MG Tablet PO SCH (08:28)
[2018-04-06] MEDS: Dextrose 5%/NaCl 0.9% Inj 1,000 ML IV.CONT SCH ×3 (04:45→23:56)
[2018-04-06] MEDS: Isosorbide Mononitrate 60 MG ER 24HR Tablet (Imdur) PO SCH (06:07)
[2018-04-06] MEDS: Levothyroxine 50 MCG Tablet PO SCH (06:07)
[2018-04-06] MEDS: Insulin NovoLOG Aspart Correctional Sugar Inj SQ SCH ×4 (08:23→20:55)
[2018-04-06] MEDS: Fenofibrate 145 MG Tablet PO SCH (08:27)
[2018-04-06] MEDS: Metoprolol Tartrate 25 MG Tablet PO SCH ×3 (08:27→20:11)
[2018-04-06 10:23] LABS: Potassium 3.8 meq/L (3.5-5.1)
[2018-04-06 10:28] LABS: Calcium 7.9 mg/dL (8.5-10.1)
[2018-04-06 10:29] LABS: Carbon Dioxide 19.7 meq/L (21.0-32.0)
[2018-04-06 20:36] LABS: Chol/HDL Ratio 4.84 Ratio; HDL Cholesterol 32.6 mg/dL (40.0-60.0)
[2018-04-07] MEDS: Levothyroxine 50 MCG Tablet PO SCH (05:48)
[2018-04-07] MEDS: Isosorbide Mononitrate 60 MG ER 24HR Tablet (Imdur) PO SCH (06:20)
[2018-04-07] MEDS: Insulin NovoLOG Aspart Correctional Sugar Inj SQ SCH (07:54)
[2018-04-07] MEDS: Metoprolol Tartrate 25 MG Tablet PO SCH (08:00)
[2018-04-07] MEDS: Fenofibrate 145 MG Tablet PO SCH (08:00)
== END 2018-04-07 10:17 | disposition home or self-care (01) ==
LOC: PHED 18:38 → INTOOBSV 21:39 → PHEDA 21:39 → PH3 23:18
PROVIDERS: ADMIT Internal Medicine; ATTEND Internal Medicine